=== PATIENT | male | born 1985 | race American Indian/Alaskan Native ===

== ENCOUNTER 2020-12-09 16:58 | Emergency (ER) | payer SELFPAY ==
[2020-12-09 17:16] VITALS: BP 117/84
--- NOTE | 2020-12-09 19:06 | Emergency Department Report ---
ED ENT HPI - General Chief complaint: Headache Stated complaint: HEADACHE AND RT EAR LEAKING YELLOW Time Seen by Provider: 12/09/20 18:54 Source: patient Mode of arrival: Ambulatory Limitations: No Limitations - History of Present Illness Initial comments: Patient is a 35-year-old male presents emergency room complaints of right ear pain that began a month ago. He states that the pain is causing him to have a headache. He states he has drainage from the ear. He denies any hearing changes or anything getting into the ear. He states that he has been incarcerated for the last month and that is why he has not had it treated. He states that he does not have a primary care physician. He denies any fever, nausea, vomiting, diarrhea, sore throat, cough, shortness of breath. No past medical history. No allergies to medications. - Related Data Previous Rx's Medication Instructions Recorded Last Taken Type Amoxicillin/Potassium Clav 1 each PO BID 10 Days #20 tablet 12/09/20 Unknown Rx [Augmentin 875-125 Tablet] Ofloxacin 0.3% [Floxin 0.3% Otic] 10 ml OD DAILY 7 Days #1 bottle 12/09/20 Unknown Rx Allergies Allergy/AdvReac Type Severity Reaction Status Date / Time No Known Allergies Allergy Unverified 12/09/20 17:14 ED Dental HPI - General Chief complaint: Headache Stated complaint: HEADACHE AND RT EAR LEAKING YELLOW Time Seen by Provider: 12/09/20 18:54 Source: patient Mode of arrival: Ambulatory Limitations: No Limitations - Related Data Previous Rx's Medication Instructions Recorded Last Taken Type Amoxicillin/Potassium Clav 1 each PO BID 10 Days #20 tablet 12/09/20 Unknown Rx [Augmentin 875-125 Tablet] Ofloxacin 0.3% [Floxin 0.3% Otic] 10 ml OD DAILY 7 Days #1 bottle 12/09/20 Unknown Rx Allergies Allergy/AdvReac Type Severity Reaction Status Date / Time No Known Allergies Allergy Unverified 12/09/20 17:14 ED Review of Systems ROS: Stated complaint: HEADACHE AND RT EAR LEAKING YELLOW Other details as noted in HPI Comment: All other systems reviewed and negative ED Past Medical Hx - Past Medical History Previous Medical History?: No - Surgical History Past Surgical History?: No - Medications Home Medications: Home Medications Medication Instructions Recorded Confirmed Last Taken Type Amoxicillin/Potassium Clav 1 each PO BID 10 Days #20 tablet 12/09/20 Unknown Rx [Augmentin 875-125 Tablet] Ofloxacin 0.3% [Floxin 0.3% Otic] 10 ml OD DAILY 7 Days #1 bottle 12/09/20 Unknown Rx ED Physical Exam - General Limitations: No Limitations General appearance: alert, in no apparent distress - Head Head exam: Present: atraumatic, normocephalic - Eye Eye exam: Present: normal appearance - ENT ENT exam: Present: mucous membranes moist, other (there is purulence inside the right ear canal, portion of the TM is visualized and appears erythematous with purulence behind the TM, left TM and canal are normal) - Respiratory Respiratory exam: Absent: respiratory distress, accessory muscle use - Neurological Exam Neurological exam: Present: alert, oriented X3 - Psychiatric Psychiatric exam: Present: normal affect, normal mood - Skin Skin exam: Present: warm, dry, intact ED Course Vital Signs 12/09/20 12/09/20 17:15 20:59 Temperature 99.4 F Pulse Rate 106 H 90 Respiratory 16 Rate Blood Pressure 117/84 O2 Sat by Pulse 99 Oximetry ED Medical Decision Making - Lab Data Vital Signs 12/09/20 12/09/20 17:15 20:59 Temperature 99.4 F Pulse Rate 106 H 90 Respiratory 16 Rate Blood Pressure 117/84 O2 Sat by Pulse 99 Oximetry - Medical Decision Making Patient is a 35-year-old male presents emergency room complaints of right ear pain that began a month ago. He states that the pain is causing him to have a headache. He states he has drainage from the ear. He denies any hearing changes or anything getting into the ear. He states that he has been incarcerated for the last month and that is why he has not had it treated. He states that he does not have a primary care physician. He denies any fever, nausea, vomiting, diarrhea, sore throat, cough, shortness of breath. No past medical history. No allergies to medications. Mild tachycardia which improved upon repeat to normal without any intervention. On exam: there is purulence inside the right ear canal, portion of the TM is visualized and appears erythematous with purulence behind the TM, left TM and canal are normal. Examination consistent with otitis media and otitis externa. Patient given prescription for medications. advised patient Please use medication as prescribed. Follow-up with a primary care doctor for ear recheck. Return to emergency room for any new or worsening symptoms. Critical care attestation.: If time is entered above; I have spent that time in minutes in the direct care of this critically ill patient, excluding procedure time. ED Disposition Clinical Impression: Otitis media Qualifiers: Otitis media type: suppurative Chronicity: acute Laterality: right Recurrence: non-recurrent Spontaneous tympanic membrane rupture: with spontaneous rupture Qualified Code(s): H66.011 - Acute suppurative otitis media with spontaneous rupture of ear drum, right ear Otitis externa Qualifiers: Otitis externa type: unspecified type Chronicity: acute Laterality: right Qualified Code(s): H60.501 - Unspecified acute noninfective otitis externa, right ear Disposition: TO HOME OR SELFCARE Is pt being admited?: No Does the pt Need Aspirin: No Condition: Stable Instructions: Otitis Externa, [id number], Otitis Media, Adult, [id number] Additional Instructions: Please use medication as prescribed. Follow-up with a primary care doctor for ear recheck. Return to emergency room for any new or worsening symptoms. Prescriptions: Amoxicillin/Potassium Clav [Augmentin 875-125 Tablet] 1 each PO BID 10 Days #20 tablet Ofloxacin 0.3% [Floxin 0.3% Otic] 10 ml OD DAILY 7 Days #1 bottle Referrals: IMER LEWIS MD [Staff Physician] - 3-5 Days [facility] [Provider Group] - 3-5 Days [facility] [Outside] - 3-5 Days [facility] [place] [Outside] - 3-5 Days Time of Disposition: 19:04 Print Language: BULGARIAN
== END 2020-12-09 20:59 | disposition home or self-care (01) ==
LOC: ED 16:58
DX: H66.91 Otitis media, unspecified, right ear (principal); H60.91 Unspecified otitis externa, right ear; Z79.899 Other long term (current) drug therapy
CPT/HCPCS: 99282